=== PATIENT | male | born 1940 | race Caucasian/White ===

== ENCOUNTER 2016-06-23 03:03 | Emergency (ER) | payer OTHER, MEDICARE ==
[~2016-06-23] VITALS: Ht 180.3 cm; Wt 92.1 kg
[~2016-06-23 03:03] MED LIST: BENTYL20 MG PO; CRESTOR20 MG PO; CYCLOBENZAPRINE10 M2 PO; GEMFIBROZIL600 MG PO; IMODIUM2 MG PO; LOPRESSOR 25MG25 MG PO; LOSARTAN POTASS50 MG PO; PERCOCET 325 MG1 TA2 PO; WARFARIN SODIUM5 MG PO
--- NOTE | 2016-06-23 03:10 | ED CARDIAC/CP/PALPITATIONS ---
History of Present Illness General Chief Complaint: General Adult Stated Complaint: CHEST DISCOMFORT WITH DEEP BREATH HX A-FIB Source: patient Exam Limitations: no limitations Vital Signs & Intake/Output Vital Signs & Intake/Output Vital Signs Date Time Temp Pulse Resp B/P B/P Pulse O2 O2 Flow FiO2 Mean Ox Delivery Rate 06/23 0517 56 20 191/93 96 Room Air 06/23 0403 196/80 06/23 0329 98 Room Air Room Air 06/23 031 96.3 63 18 196/80 97 Room Air Allergies Coded Allergies: NO KNOWN ALLERGIES (07/18/11) Reconcile Medications Apixaban (Eliquis) 5 MG TABLET 1 TAB PO BID BLOOD THINNER/AFIB (Reported) Cyclobenzaprine HCl 10 MG TABLET 1 TAB PO TID PRN MUSCLE SPASM Dicyclomine Hydrochloride (Bentyl) 20 MG TAB 1 TAB PO Q6P PRN ABD PAIN Gemfibrozil 600 MG TABLET 1 TAB PO DAILY CHOLESTEROL (Reported) Loperamide Hydrochloride (Imodium) 2 MG CAP 1 TAB PO SEE ADMIN CRITERIA PRN DIARRHEA 2 tabs after 1st loose stool then 1 tab after each loose stool up to 7 per day Losartan Potassium 50 MG TABLET 1 TAB PO DAILY BLOOD PRESSURE (Reported) Metoprolol Tartrate (Lopressor) 25 MG TABLET 0.5 TAB PO BID HEART RATE ( Reported) OXYCODONE HCL/ACETAMINOPHEN (Percocet 5-325 MG Tablet) 325 MG/5 MG TAB 1-2 TAB PO Q4-6 PRN PRN PAIN Rosuvastatin Calcium (Crestor) 20 MG TABLET 1 TAB PO DAILY CHOLESTEROL ( Reported) Rosuvastatin Calcium (Crestor) 20 MG TABLET 1 TAB PO DAILY CHOL (Reported) Warfarin Sodium 5 MG TABLET 1 TAB PO DAILY A FIB (Reported) Triage Nurses Notes Reviewed? yes Onset: Gradual Duration: day(s):, waxing and waning Timing: recent history Quality/Severity: moderate Location: left sided chest wall Radiation: no radiation Activities at Onset: none Prior Chest Pain/Card Workup: no prior chest pain Modifying Factors: Worsens With: palpation. Associated Symptoms: left sided chest wall pain HPI: 75-year-old gentleman with a history of A. fib, no myocardial infarction, presents with focal left-sided chest wall pain that began 1.5 days ago after doing yard work during the day. He states it hurts when he takes a deep breath and when he presses the left side of his chest. He has no diaphoresis syncopal symptoms radiation. He is otherwise well. Past History Medical History Any Pertinent Medical History? see below for history Cardiovascular: AFIB, hypertension, hyperlipidemia Cancer(s): PROSTATE,PANCREATITIC Surgical History Surgical History: none Psychosocial History Who do you live with Spouse Services at Home None What is your primary language Azeri Family History Hx Contributory? No Review of Systems Review of Systems Constitutional: Reports: no symptoms. EENTM: Reports: no symptoms. Respiratory: Reports: no symptoms. Cardiovascular: Reports: no symptoms. GI: Reports: no symptoms. Genitourinary: Reports: no symptoms. Musculoskeletal: Reports: no symptoms. Skin: Reports: no symptoms. Neurological/Psychological: Reports: no symptoms. Hematologic/Endocrine: Reports: no symptoms. Immunologic/Allergic: Reports: no symptoms. All Other Systems: Reviewed and Negative Physical Exam Physical Exam General Appearance: well developed/nourished, no apparent distress, alert, awake Head: atraumatic, normal appearance Eyes: Bilateral: normal appearance. Ears, Nose, Throat: normal pharynx, normal ENT inspection Neck: normal inspection, supple, full range of motion Respiratory: normal breath sounds, no respiratory distress, LEFT-SIDED RIB CAGE TENDERNESS TO PALPATION Cardiovascular: irregularly irregular Peripheral Pulses: 2+ carotid (R), 2+ carotid (L) Gastrointestinal: normal bowel sounds, soft, non-tender Extremities: normal inspection, normal capillary refill Neurologic/Psych: no motor/sensory deficits, awake, alert, oriented x 3 Skin: intact, normal color, warm/dry Core Measures ACS in differential dx? No Severe Sepsis Present: No Septic Shock Present: No Progress Differential Diagnosis: AMI, costochondritis, musculoskeletal pain Plan of Care: Orders Procedure Date/time Status TROPONIN LEVEL 06/23 309 Complete PARTIAL THROMBOPLASTIN TIME 06/23 309 Complete PROTHROMBIN TIME 06/23 309 Complete COMPREHENSIVE METABOLIC PANEL 06/23 309 Complete CBC WITHOUT DIFFERENTIAL 06/23 309 Complete EKG 06/23 0308 Active Laboratory Tests 06/23/16 0320: Anion Gap 10, Estimated GFR > 60, BUN/Creatinine Ratio 27.5 H, Glucose 110 H, Calcium 9.9, Total Bilirubin 0.6, AST 23, ALT 41, Alkaline Phosphatase 138 H, Troponin I < 0.01, Total Protein 7.0, Albumin 4.2, Globulin 2.8, Albumin/ Globulin Ratio 1.5, PT 12.4, INR 1.18 H, APTT 33, CBC w Diff NO MAN DIFF REQ, RBC 5.14, MCV 93.3, MCH 30.8, RDW 14.3, MPV 10.5 H, Gran % 51.4, Lymphocytes % 29.2, Monocytes % 12.4 H, Eosinophils % 5.7 H, Basophils % 1.3, Absolute Granulocytes 5.7, Absolute Lymphocytes 3.2, Absolute Monocytes 1.4 H, Absolute Eosinophils 0.6, Absolute Basophils 0.1, PUBS MCHC 33.1 Diagnostic Imaging: Viewed by Me: Radiology Read. Discussed w/RAD: Radiology Read. CXR Impression: atelectasis... full report below. Initial ED EKG: AFIB Comments: PATIENT: ABHISHEK PERRIN PRESENT AGE: 75 PATIENT ACCOUNT NO: [id number] : 40 LOCATION: [facility] ORDERING PHYSICIAN: JUANITA QUINTEROS MD SERVICE DATE: 06/23/16 EXAM TYPE: RAD - XRY-PORTABLE CHEST XRAY EXAMINATION: XR PORTABLE CHEST CLINICAL INFORMATION: Left-sided chest wall discomfort COMPARISON: 03/30/2012 TECHNIQUE: Portable frontal view of the chest was obtained. FINDINGS: Cardiac leads overlie the chest. The lungs are well expanded. Minimal linear left basilar atelectasis. No edema or effusion. No pneumothorax. The cardiomediastinal silhouette is unchanged. No acute osseous abnormality. IMPRESSION: Minimal left basilar atelectasis. DICTATED BY: EMILE MCCOLLUM MD DATE/TIME DICTATED:06/23/16406 TILE FINISHER:MAIKEL DATE/TIME TRANSCRIBED:06/23/16406 CONFIDENTIAL, DO NOT COPY WITHOUT APPROPRIATE AUTHORIZATION. <Electronically signed in Other Vendor System> SIGNED BY: EMILE MCCOLLUM MD 06/23 Departure Departure Disposition: HOME OR SELF CARE Condition: Stable Clinical Impression Primary Impression: Chest wall pain Referrals: VICENTE TORRES MD (PCP/Family) Departure Forms: Customer Survey General Discharge Information Prescriptions: Current Visit Scripts Cyclobenzaprine HCl 1 TAB PO TID PRN MUSCLE SPASM #30 TAB Ref 1 Comments 06/23/16, 5am... Patient feels well after Tylenol and Flexeril. I discussed with him at great length the importance of considering a second troponin test. He states that he feels well and would like to go home. Given that he has had symptoms for more than 1.5 days with a negative troponin and benign EKG, I believe he is safe for discharge. 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 Critical Care Note Critical Care Note Critical Care Time: non-applicable
[2016-06-23] MEDS ORDERED: ELIQUIS5 M1 PO (03:28)
[2016-06-23] MEDS ORDERED: CRESTOR20 M2 PO (03:29)
[2016-06-23 03:31] LABS: ABSOLUTE LYMPH COUNT 3.2 /CUMM (1.2-3.4)
[2016-06-23 03:34] LABS: ABSOLUTE BASOPHIL COUNT 0.1 /CUMM (0.0-0.2); ABSOLUTE EOSINOPHIL COUNT 0.6 /CUMM (0.0-0.7); ABSOLUTE GRANULOCYTE CT 5.7 /CUMM (1.4-6.5); ABSOLUTE MONOCYTE COUNT 1.4 /CUMM (0.10-0.60); BASOPHIL % 1.3 % (0.0-2.0); EOSINOPHIL % 5.7 % (0-5); GRANULOCYTE % 51.4 % (42.2-75.2); HEMATOCRIT 47.9 % (42-52); MEAN CORPUSCULAR HGB 30.8 PG (27.0-31.0); MEAN CORPUSCULAR HGB CONC 33.1 G/DL (33.0-37.0); MEAN CORPUSCULAR VOLUME 93.3 FL (80.0-94.0); MEAN PLATELET VOLUME 10.5 FL (7.4-10.4); PLATELET COUNT 271 /CUMM (130-400); RBC DISTRIBUTION WIDTH 14.3 % (11.5-14.5); RED BLOOD CELL CT 5.14 /CUMM (4.70-6.10)
[2016-06-23 03:39] LABS: PT 12.4 SEC (9.4-12.5); PTT 33 SEC (25-37)
--- NOTE | 2016-06-23 04:11 | RADIOLOGY REPORT ---
EXAMINATION: XR PORTABLE CHEST CLINICAL INFORMATION: Left-sided chest wall discomfort COMPARISON: 03/30/2012 TECHNIQUE: Portable frontal view of the chest was obtained. FINDINGS: Cardiac leads overlie the chest. The lungs are well expanded. Minimal linear left basilar atelectasis. No edema or effusion. No pneumothorax. The cardiomediastinal silhouette is unchanged. No acute osseous abnormality. IMPRESSION: Minimal left basilar atelectasis.
[2016-06-23] MEDS ORDERED: CYCLOBENZAPRINE10 M1 PO (05:05)
[2016-06-23 05:17] VITALS: BP 191/93
== END 2016-06-23 05:27 ==
LOC: ERH 03:03
PROVIDERS: Pediatrics
DX: R07.89 Other chest pain (principal)
CPT/HCPCS: 93005; 93010; J3490